=== PATIENT | male | born 1975 | race African-American/Black ===

== ENCOUNTER 2016-09-13 10:24 | Inpatient (IN) | payer OTHER ==
[2016-09-13] MEDS ORDERED: TOPROL XL100 M1 PO (10:40)
[2016-09-13] MEDS ORDERED: LEXAPRO20 M2 PO (10:40)
[2016-09-13 11:34] LABS: BASO % 0.3 % (0-2); EOS % 0.5 % (0-7); EOSINOPHIL ABSOLUTE COUNT 0.1 tho/cmm (0.0-0.7); HCT-HEMATOCRIT 37.2 % (36.0-53.5); IMMATURE GRANULOCYTES ABSOLUTE 0.06 tho/cmm (0-0.03); IMMATURE GRANULOCYTES PERCENT 0.6 % (0-0.3); LYMPH % 9.6 % (20-45); MCV (MEAN CELL VOLUME) 90.7 fl (82.0-96.0); MEAN PLATELET VOLUME 11.5 cmc (9.4-12.4); MONO % 6.6 % (0-12); MONOCYTE ABSOLUTE COUNT 0.7 tho/cmm (0.0-1.2); NEUTROPHIL ABSOLUTE COUNT 8.1 tho/cmm (1.6-8.0); NEUTROPHIL-AUTOMATED 8.1 tho/cmm (1.6-8.0); NEUTROPHILS % 82.4 % (40-80); PLATELET COUNT 119 tho/cmm (150-450); RED CELL DISTRIBUTION WIDTH 17.4 % (12.4-16.4); WHITE BLOOD COUNT 9.9 tho/cmm (4.0-10.0)
[2016-09-13 11:54] LABS: INR 2.6 INR (0.9-1.1); PROTHROMBIN TIME 31.6 SECONDS (9.0-13.6)
[2016-09-13 11:55] LABS: ALB/GLOB RATIO 0.4 (0.8-2.0); ALBUMIN 2.2 g/dl (3.5-5.0); ALCOHOL (ETOH) <10 mg/dl (<10); ALKALINE PHOSPHATASE 192 U/L (33-138); ALT/SGPT 41 U/L (12-78); AST/SGOT 107 U/L (10-40); BLOOD UREA NITROGEN 8 mg/dl (6-24); CALCIUM 8.1 mg/dl (8.5-10.5); CARBON DIOXIDE-VENOUS 29 mmol/L (22-32); CHLORIDE 89 mmol/l (96-110); GLUCOSE 101 mg/dL (70-110); LIPASE 580 U/L (73-393); MAGNESIUM 1.6 mg/dl (1.8-2.6); SODIUM 131 mmol/L (135-145)
[2016-09-13 11:56] LABS: ANION GAP 16 mmol/L (0-20); eGFR VALUE FOR BLACK >90 mL/Min
[2016-09-13 11:57] LABS: POTASSIUM 2.5 mmol/L (3.7-5.1)
[2016-09-13 12:05] LABS: URINE BILIRUBIN MODERATE (NEG); URINE BLOOD MODERATE (NEG); URINE GLUCOSE (UA) NEGATIVE (NEG); URINE KETONE SMALL (NEG); URINE LEUKOCYTE ESTERASE POSITIVE (NEG); URINE NITRITE POSITIVE (NEG); URINE PH 6.5 (5.0-8.0); URINE PROTEIN MODERATE (NEG); URINE SPECIFIC GRAVITY 1.015 (1.003-1.030)
[2016-09-13 12:05] LABS: BILIRUBIN,TOTAL 28.6 mg/dl (0.0-1.5)
[2016-09-13 12:06] LABS: URINE COLOR BROWN
[2016-09-13 12:31] LABS: URINE APPEARANCE CLOUDY
[2016-09-13 12:34] LABS: URINE EPITHELIAL CELLS 15-20 /[HPF] (0-10)
[2016-09-13 12:35] LABS: URINE RBC 0-1 /[HPF] (0-5)
[2016-09-14 02:04] LABS: INR 2.7 INR (0.9-1.1); PROTHROMBIN TIME 32.1 SECONDS (9.0-13.6)
[2016-09-14 02:11] LABS: BASO % 0.3 % (0-2); EOS % 1.1 % (0-7); EOSINOPHIL ABSOLUTE COUNT 0.1 tho/cmm (0.0-0.7); HCT-HEMATOCRIT 33.2 % (36.0-53.5); IMMATURE GRANULOCYTES ABSOLUTE 0.05 tho/cmm (0-0.03); IMMATURE GRANULOCYTES PERCENT 0.5 % (0-0.3); LYMPH % 10.7 % (20-45); MCV (MEAN CELL VOLUME) 90.2 fl (82.0-96.0); MEAN PLATELET VOLUME 11.5 cmc (9.4-12.4); MONO % 7.8 % (0-12); MONOCYTE ABSOLUTE COUNT 0.7 tho/cmm (0.0-1.2); NEUTROPHIL ABSOLUTE COUNT 7.4 tho/cmm (1.6-8.0); NEUTROPHIL-AUTOMATED 7.4 tho/cmm (1.6-8.0); NEUTROPHILS % 79.6 % (40-80); PLATELET COUNT 101 tho/cmm (150-450); RED BLOOD COUNT 3.68 mil/cmm (4.40-5.70); RED CELL DISTRIBUTION WIDTH 17.7 % (12.4-16.4); WHITE BLOOD COUNT 9.3 tho/cmm (4.0-10.0)
[2016-09-14 02:18] LABS: ALBUMIN 1.9 g/dl (3.5-5.0); ALKALINE PHOSPHATASE 167 U/L (33-138); ALT/SGPT 36 U/L (12-78); AMYLASE 74 U/L (20-90); AST/SGOT 88 U/L (10-40); BLOOD UREA NITROGEN 13 mg/dl (6-24); CALCIUM 7.7 mg/dl (8.5-10.5); CARBON DIOXIDE-VENOUS 32 mmol/L (22-32); CHLORIDE 92 mmol/l (96-110); GLUCOSE 94 mg/dL (70-110); MAGNESIUM 2.4 mg/dl (1.8-2.6); PHOSPHOROUS 1.9 mg/dl (2.5-4.9); SODIUM 134 mmol/L (135-145)
[2016-09-14 02:29] LABS: IRON 78 ug/dl (49-181); IRON BINDING CAPACITY 88 ug/dl (250-450)
[2016-09-14 02:45] LABS: ALB/GLOB RATIO 0.4 (0.8-2.0); ANION GAP 13 mmol/L (0-20); BILIRUBIN,TOTAL 25.9 mg/dl (0.0-1.5); CREATININE 1.25 mg/dl (0.60-1.30); POTASSIUM 2.8 mmol/L (3.7-5.1); eGFR VALUE FOR BLACK 82 mL/Min
[2016-09-14 02:46] LABS: BILIRUBIN,DIRECT >17.0 mg/dl (0.0-0.3); BILIRUBIN,INDIRECT 8.9 mg/dL (0.0-1.0); FERRITIN 540 ng/ml (22-388); LIPASE 1245 U/L (73-393)
[2016-09-14 19:48] LABS: PLATELET COUNT 143 tho/cmm (150-450)
[2016-09-15 06:02] LABS: BASO % 0.1 % (0-2); EOS % 0.1 % (0-7); HCT-HEMATOCRIT 35.1 % (36.0-53.5); IMMATURE GRANULOCYTES ABSOLUTE 0.18 tho/cmm (0-0.03); IMMATURE GRANULOCYTES PERCENT 1.2 % (0-0.3); LYMPH % 9.5 % (20-45); LYMPH ABSOLUTE COUNT 1.4 tho/cmm (0.8-4.5); MCV (MEAN CELL VOLUME) 90.7 fl (82.0-96.0); MEAN PLATELET VOLUME 11.1 cmc (9.4-12.4); MONO % 3.8 % (0-12); MONOCYTE ABSOLUTE COUNT 0.6 tho/cmm (0.0-1.2); NEUTROPHIL ABSOLUTE COUNT 12.6 tho/cmm (1.6-8.0); NEUTROPHIL-AUTOMATED 12.6 tho/cmm (1.6-8.0); NEUTROPHILS % 85.3 % (40-80); PLATELET COUNT 154 tho/cmm (150-450); RED BLOOD COUNT 3.87 mil/cmm (4.40-5.70); RED CELL DISTRIBUTION WIDTH 18.1 % (12.4-16.4)
[2016-09-15 06:06] LABS: INR 2.6 INR (0.9-1.1); PROTHROMBIN TIME 30.8 SECONDS (9.0-13.6)
[2016-09-15 06:16] LABS: WHITE BLOOD COUNT 14.7 tho/cmm (4.0-10.0)
[2016-09-15 06:17] LABS: HGB-HEMOGLOBIN 11.8 gm/dl (13.5-17.0); MCH (MEAN CORPUSCULAR HGB) 30.4 pg (28.0-32.0); MCHC MEAN CORPUSCULAR HGB CONC 33.6 % (32.0-36.0)
[2016-09-15 06:20] LABS: ALBUMIN 1.8 g/dl (3.5-5.0); ALKALINE PHOSPHATASE 170 U/L (33-138); ALT/SGPT 38 U/L (12-78); ANION GAP 13 mmol/L (0-20); AST/SGOT 95 U/L (10-40); CALCIUM 7.6 mg/dl (8.5-10.5); CARBON DIOXIDE-VENOUS 23 mmol/L (22-32); CHLORIDE 97 mmol/l (96-110); GLUCOSE 128 mg/dL (70-110); POTASSIUM 3.9 mmol/L (3.7-5.1); SODIUM 129 mmol/L (135-145)
[2016-09-15 06:36] LABS: ALB/GLOB RATIO 0.4 (0.8-2.0); BLOOD UREA NITROGEN 25 mg/dl (6-24); eGFR VALUE FOR BLACK 44 mL/Min
[2016-09-15 06:37] LABS: BILIRUBIN,TOTAL 27.3 mg/dl (0.0-1.5)
[2016-09-15 06:38] LABS: CREATININE 2.08 mg/dl (0.60-1.30)
[2016-09-15 09:47] LABS: HGB-HEMOGLOBIN 11.8 gm/dl (13.5-17.0)
[2016-09-15 09:49] LABS: HGB-HEMOGLOBIN 11.2 gm/dl (13.5-17.0); MCH (MEAN CORPUSCULAR HGB) 30.4 pg (28.0-32.0)
[2016-09-15 09:49] LABS: HGB-HEMOGLOBIN 12.5 gm/dl (13.5-17.0); MCH (MEAN CORPUSCULAR HGB) 30.4 pg (28.0-32.0); MCHC MEAN CORPUSCULAR HGB CONC 33.6 % (32.0-36.0)
[2016-09-15 09:50] LABS: MCHC MEAN CORPUSCULAR HGB CONC 33.7 % (32.0-36.0)
[2016-09-15 14:28] LABS: ANION GAP 13 mmol/L (0-20); BLOOD UREA NITROGEN 24 mg/dl (6-24); CALCIUM 7.5 mg/dl (8.5-10.5); CARBON DIOXIDE-VENOUS 24 mmol/L (22-32); CHLORIDE 96 mmol/l (96-110); POTASSIUM 3.7 mmol/L (3.7-5.1); SODIUM 129 mmol/L (135-145); eGFR VALUE FOR BLACK 41 mL/Min
[2016-09-15 14:40] LABS: CREATININE 2.23 mg/dl (0.60-1.30); GLUCOSE 63 mg/dL (70-110)
[2016-09-16 02:20] LABS: BASO % 0.1 % (0-2); HCT-HEMATOCRIT 32.1 % (36.0-53.5); HGB-HEMOGLOBIN 11.7 gm/dl (13.5-17.0); IMMATURE GRANULOCYTES ABSOLUTE 0.09 tho/cmm (0-0.03); IMMATURE GRANULOCYTES PERCENT 0.8 % (0-0.3); LYMPH % 11.2 % (20-45); LYMPH ABSOLUTE COUNT 1.3 tho/cmm (0.8-4.5); MCV (MEAN CELL VOLUME) 90.7 fl (82.0-96.0); MEAN PLATELET VOLUME 11.1 cmc (9.4-12.4); MONO % 9.4 % (0-12); MONOCYTE ABSOLUTE COUNT 1.1 tho/cmm (0.0-1.2); NEUTROPHILS % 78.5 % (40-80); PLATELET COUNT 136 tho/cmm (150-450); RED BLOOD COUNT 3.54 mil/cmm (4.40-5.70); WHITE BLOOD COUNT 11.5 tho/cmm (4.0-10.0)
[2016-09-16 02:28] LABS: MCH (MEAN CORPUSCULAR HGB) 33.1 pg (28.0-32.0); MCHC MEAN CORPUSCULAR HGB CONC 36.4 % (32.0-36.0)
[2016-09-16 02:30] LABS: INR 2.3 INR (0.9-1.1); PROTHROMBIN TIME 27.4 SECONDS (9.0-13.6)
[2016-09-16 02:44] LABS: ALBUMIN 1.7 g/dl (3.5-5.0); ALKALINE PHOSPHATASE 161 U/L (33-138); ALT/SGPT 41 U/L (12-78); ANION GAP 14 mmol/L (0-20); AST/SGOT 91 U/L (10-40); BLOOD UREA NITROGEN 32 mg/dl (6-24); CALCIUM 7.4 mg/dl (8.5-10.5); CARBON DIOXIDE-VENOUS 24 mmol/L (22-32); CHLORIDE 98 mmol/l (96-110); POTASSIUM 3.6 mmol/L (3.7-5.1); SODIUM 132 mmol/L (135-145)
[2016-09-16 02:59] LABS: ALB/GLOB RATIO 0.4 (0.8-2.0); CREATININE 2.38 mg/dl (0.60-1.30); GLUCOSE 116 mg/dL (70-110); eGFR VALUE FOR BLACK 38 mL/Min
[2016-09-16 03:00] LABS: BILIRUBIN,TOTAL 23.8 mg/dl (0.0-1.5)
[2016-09-17 04:41] LABS: BASO % 0.1 % (0-2); EOS % 0.1 % (0-7); HCT-HEMATOCRIT 31.2 % (36.0-53.5); HGB-HEMOGLOBIN 11.4 gm/dl (13.5-17.0); IMMATURE GRANULOCYTES ABSOLUTE 0.12 tho/cmm (0-0.03); IMMATURE GRANULOCYTES PERCENT 1.2 % (0-0.3); LYMPH % 8.2 % (20-45); LYMPH ABSOLUTE COUNT 0.8 tho/cmm (0.8-4.5); MCH (MEAN CORPUSCULAR HGB) 33.3 pg (28.0-32.0); MCHC MEAN CORPUSCULAR HGB CONC 36.5 % (32.0-36.0); MCV (MEAN CELL VOLUME) 91.2 fl (82.0-96.0); MEAN PLATELET VOLUME 10.4 cmc (9.4-12.4); MONO % 7.4 % (0-12); MONOCYTE ABSOLUTE COUNT 0.7 tho/cmm (0.0-1.2); NEUTROPHIL ABSOLUTE COUNT 8.1 tho/cmm (1.6-8.0); NEUTROPHIL-AUTOMATED 8.1 tho/cmm (1.6-8.0); PLATELET COUNT 133 tho/cmm (150-450); RED BLOOD COUNT 3.42 mil/cmm (4.40-5.70); RED CELL DISTRIBUTION WIDTH 18.5 % (12.4-16.4); WHITE BLOOD COUNT 9.7 tho/cmm (4.0-10.0)
[2016-09-17 05:03] LABS: ALB/GLOB RATIO 0.7 (0.8-2.0); ALBUMIN 2.5 g/dl (3.5-5.0); ALKALINE PHOSPHATASE 162 U/L (33-138); ALT/SGPT 44 U/L (12-78); ANION GAP 15 mmol/L (0-20); AST/SGOT 88 U/L (10-40); BLOOD UREA NITROGEN 32 mg/dl (6-24); CALCIUM 8.2 mg/dl (8.5-10.5); CARBON DIOXIDE-VENOUS 22 mmol/L (22-32); CHLORIDE 104 mmol/l (96-110); GLUCOSE 89 mg/dL (70-110); POTASSIUM 3.7 mmol/L (3.7-5.1); SODIUM 137 mmol/L (135-145)
[2016-09-17 05:04] LABS: INR 2.2 INR (0.9-1.1); PROTHROMBIN TIME 26.4 SECONDS (9.0-13.6)
[2016-09-17 05:06] LABS: CREATININE 2.24 mg/dl (0.60-1.30); eGFR VALUE FOR BLACK 41 mL/Min
[2016-09-17 05:12] LABS: BILIRUBIN,TOTAL 26.3 mg/dl (0.0-1.5)
[2016-09-18 05:54] LABS: EOS % 0.5 % (0-7); HCT-HEMATOCRIT 31.2 % (36.0-53.5); HGB-HEMOGLOBIN 11.3 gm/dl (13.5-17.0); IMMATURE GRANULOCYTES ABSOLUTE 0.06 tho/cmm (0-0.03); IMMATURE GRANULOCYTES PERCENT 0.7 % (0-0.3); LYMPH % 9.5 % (20-45); LYMPH ABSOLUTE COUNT 0.8 tho/cmm (0.8-4.5); MCHC MEAN CORPUSCULAR HGB CONC 36.2 % (32.0-36.0); MCV (MEAN CELL VOLUME) 91.2 fl (82.0-96.0); MEAN PLATELET VOLUME 11.1 cmc (9.4-12.4); MONO % 6.8 % (0-12); MONOCYTE ABSOLUTE COUNT 0.6 tho/cmm (0.0-1.2); NEUTROPHIL ABSOLUTE COUNT 6.9 tho/cmm (1.6-8.0); NEUTROPHIL-AUTOMATED 6.9 tho/cmm (1.6-8.0); NEUTROPHILS % 82.5 % (40-80); PLATELET COUNT 131 tho/cmm (150-450); RED BLOOD COUNT 3.42 mil/cmm (4.40-5.70); RED CELL DISTRIBUTION WIDTH 18.8 % (12.4-16.4); WHITE BLOOD COUNT 8.4 tho/cmm (4.0-10.0)
[2016-09-18 05:57] LABS: INR 2.3 INR (0.9-1.1); PROTHROMBIN TIME 26.9 SECONDS (9.0-13.6)
[2016-09-18 06:11] LABS: ALB/GLOB RATIO 0.9 (0.8-2.0); ALBUMIN 2.8 g/dl (3.5-5.0); ALKALINE PHOSPHATASE 133 U/L (33-138); ALT/SGPT 43 U/L (12-78); ANION GAP 14 mmol/L (0-20); AST/SGOT 76 U/L (10-40); BLOOD UREA NITROGEN 30 mg/dl (6-24); CALCIUM 8.6 mg/dl (8.5-10.5); CARBON DIOXIDE-VENOUS 25 mmol/L (22-32); CHLORIDE 103 mmol/l (96-110); GLUCOSE 81 mg/dL (70-110); POTASSIUM 3.6 mmol/L (3.7-5.1); SODIUM 138 mmol/L (135-145)
[2016-09-18 06:12] LABS: CREATININE 1.93 mg/dl (0.60-1.30); eGFR VALUE FOR BLACK 49 mL/Min
[2016-09-18 06:32] LABS: BILIRUBIN,TOTAL 25.8 mg/dl (0.0-1.5)
[2016-09-19 05:38] LABS: EOS % 0.5 % (0-7); HCT-HEMATOCRIT 28.8 % (36.0-53.5); HGB-HEMOGLOBIN 10.4 gm/dl (13.5-17.0); IMMATURE GRANULOCYTES ABSOLUTE 0.05 tho/cmm (0-0.03); IMMATURE GRANULOCYTES PERCENT 0.6 % (0-0.3); LYMPH % 8.8 % (20-45); LYMPH ABSOLUTE COUNT 0.7 tho/cmm (0.8-4.5); MCH (MEAN CORPUSCULAR HGB) 32.8 pg (28.0-32.0); MCHC MEAN CORPUSCULAR HGB CONC 36.1 % (32.0-36.0); MCV (MEAN CELL VOLUME) 90.9 fl (82.0-96.0); MEAN PLATELET VOLUME 10.6 cmc (9.4-12.4); MONO % 6.2 % (0-12); MONOCYTE ABSOLUTE COUNT 0.5 tho/cmm (0.0-1.2); NEUTROPHIL ABSOLUTE COUNT 6.9 tho/cmm (1.6-8.0); NEUTROPHIL-AUTOMATED 6.9 tho/cmm (1.6-8.0); NEUTROPHILS % 83.9 % (40-80); PLATELET COUNT 134 tho/cmm (150-450); RED BLOOD COUNT 3.17 mil/cmm (4.40-5.70); RED CELL DISTRIBUTION WIDTH 18.8 % (12.4-16.4); WHITE BLOOD COUNT 8.2 tho/cmm (4.0-10.0)
[2016-09-19 05:43] LABS: INR 2.4 INR (0.9-1.1); PROTHROMBIN TIME 28.2 SECONDS (9.0-13.6)
[2016-09-19 05:57] LABS: ALB/GLOB RATIO 1.1 (0.8-2.0); ALBUMIN 3.1 g/dl (3.5-5.0); ALKALINE PHOSPHATASE 118 U/L (33-138); ALT/SGPT 41 U/L (12-78); ANION GAP 12 mmol/L (0-20); AST/SGOT 68 U/L (10-40); BLOOD UREA NITROGEN 28 mg/dl (6-24); CALCIUM 8.5 mg/dl (8.5-10.5); CARBON DIOXIDE-VENOUS 24 mmol/L (22-32); CHLORIDE 104 mmol/l (96-110); GLUCOSE 94 mg/dL (70-110); POTASSIUM 3.6 mmol/L (3.7-5.1); SODIUM 136 mmol/L (135-145)
[2016-09-19 05:59] LABS: eGFR VALUE FOR BLACK 53 mL/Min
[2016-09-19 06:10] LABS: BILIRUBIN,TOTAL 26.7 mg/dl (0.0-1.5)
[2016-09-20 05:45] LABS: INR 2.5 INR (0.9-1.1); PROTHROMBIN TIME 29.7 SECONDS (9.0-13.6)
[2016-09-20 06:04] LABS: ALBUMIN 2.9 g/dl (3.5-5.0); ALKALINE PHOSPHATASE 133 U/L (33-138); ALT/SGPT 50 U/L (12-78); ANION GAP 12 mmol/L (0-20); AST/SGOT 73 U/L (10-40); BLOOD UREA NITROGEN 26 mg/dl (6-24); CALCIUM 8.4 mg/dl (8.5-10.5); CARBON DIOXIDE-VENOUS 25 mmol/L (22-32); CHLORIDE 103 mmol/l (96-110); GLUCOSE 101 mg/dL (70-110); POTASSIUM 3.5 mmol/L (3.7-5.1); SODIUM 136 mmol/L (135-145)
[2016-09-20 06:06] LABS: CREATININE 1.68 mg/dl (0.60-1.30); eGFR VALUE FOR BLACK 58 mL/Min
[2016-09-20 06:14] LABS: BILIRUBIN,TOTAL 27.6 mg/dl (0.0-1.5)
[2016-09-20 07:38] LABS: HCT-HEMATOCRIT 30.6 % (36.0-53.5); HGB-HEMOGLOBIN 11.1 gm/dl (13.5-17.0); MCV (MEAN CELL VOLUME) 91.3 fl (82.0-96.0); RED CELL DISTRIBUTION WIDTH 18.7 % (12.4-16.4)
--- NOTE | 2016-09-20 20:22 | NUR ---
VN ROUNDING-DEFERRED PATIENT IS SLEEPING-REVIEWED EMR
[2016-09-21 04:54] LABS: INR 2.4 INR (0.9-1.1)
[2016-09-21 05:04] LABS: BASO % 0.1 % (0-2); EOS % 0.9 % (0-7); EOSINOPHIL ABSOLUTE COUNT 0.1 tho/cmm (0.0-0.7); HCT-HEMATOCRIT 30.4 % (36.0-53.5); HGB-HEMOGLOBIN 11.2 gm/dl (13.5-17.0); IMMATURE GRANULOCYTES ABSOLUTE 0.06 tho/cmm (0-0.03); IMMATURE GRANULOCYTES PERCENT 0.5 % (0-0.3); LYMPH % 10.3 % (20-45); LYMPH ABSOLUTE COUNT 1.3 tho/cmm (0.8-4.5); MCH (MEAN CORPUSCULAR HGB) 33.4 pg (28.0-32.0); MCV (MEAN CELL VOLUME) 90.7 fl (82.0-96.0); MEAN PLATELET VOLUME 11.1 cmc (9.4-12.4); MONO % 5.2 % (0-12); MONOCYTE ABSOLUTE COUNT 0.6 tho/cmm (0.0-1.2); NEUTROPHIL ABSOLUTE COUNT 10.2 tho/cmm (1.6-8.0); NEUTROPHIL-AUTOMATED 10.2 tho/cmm (1.6-8.0); PLATELET COUNT 164 tho/cmm (150-450); RED BLOOD COUNT 3.35 mil/cmm (4.40-5.70); RED CELL DISTRIBUTION WIDTH 18.7 % (12.4-16.4); WHITE BLOOD COUNT 12.2 tho/cmm (4.0-10.0)
[2016-09-21 05:10] LABS: ALBUMIN 2.9 g/dl (3.5-5.0); ALKALINE PHOSPHATASE 151 U/L (33-138); ALT/SGPT 59 U/L (12-78); ANION GAP 12 mmol/L (0-20); AST/SGOT 83 U/L (10-40); BLOOD UREA NITROGEN 25 mg/dl (6-24); CALCIUM 8.6 mg/dl (8.5-10.5); CARBON DIOXIDE-VENOUS 24 mmol/L (22-32); CHLORIDE 103 mmol/l (96-110); GLUCOSE 85 mg/dL (70-110); SODIUM 135 mmol/L (135-145)
[2016-09-21 05:19] LABS: MCHC MEAN CORPUSCULAR HGB CONC 36.8 % (32.0-36.0)
[2016-09-21 05:34] LABS: ALB/GLOB RATIO 0.9 (0.8-2.0); eGFR VALUE FOR BLACK 62 mL/Min
[2016-09-21 05:35] LABS: BILIRUBIN,TOTAL 30.5 mg/dl (0.0-1.5); CREATININE 1.58 mg/dl (0.60-1.30)
--- NOTE | 2016-09-21 15:30 | NUR ---
VIRTUAL CARE NOTE: PT RESTING ON BED, NOTED MILD TREMOR ON EXTREMETIES. PT STATES DOING BETTER TODAY. WALKS WITH PHYSICAL THERAPY. DISCHARGE PLAN REVIEWED WITH PT, PT SAID HE WOULD LIKE TO EITHER GO HOME AND DO OUT PATIENT REHAB OR GO TO FACILITY IS OK ALSO. PT LIVES AT HOME WITH HIS AND KIDS. PT DENIES ANY NEEDS AT THIS TIME.
[2016-09-22] MEDS ORDERED: XIFAXAN550 M1 PO (15:18)
[2016-09-22] MEDS ORDERED: CHLORDIAZEPOXID10 M1 PO (15:21)
[2016-09-22] MEDS ORDERED: PREDNISONE5 M1 PO (15:22)
[2016-11-03] MEDS ORDERED: LASIX40 M1 PO (11:35)
[2016-11-03] MEDS ORDERED: NICOTINE PATCH1 EAC2 TP (11:35)
[2016-11-03] MEDS ORDERED: ALDACTONE100 M1 PO (11:36)
[2016-11-03] MEDS ORDERED: IMODIUM A-D2 M3 PO (11:37)
[2016-11-03] MEDS ORDERED: ORAPRED ODT10 MG PO (11:39)
[2016-11-07] MEDS ORDERED: POTASSIUM CHLO20 ME3 PO (01:03)
[2016-11-07] MEDS ORDERED: PROTONIX40 M2 (01:03)
[2016-11-07] MEDS ORDERED: PROMETHAZINE HC25 M3 PO (02:37)
== END 2016-09-22 17:15 | disposition home health service (06) | DRG 433 ==
LOC: EDMED 10:24 → EMR2 15:32 → PCUA 19:08 → 5WD 09-20 18:19
PROVIDERS: Emergency Medicine; Physician Assistant Medical; Specialist; ADMIT Family Medicine
PROC: 0DJ08ZZ Inspection of Upper Intestinal Tract, Via Natural or Artificial Opening Endoscopic (ICD-10-PCS; 2016-09-13)
PROC: 05HF33Z Insertion of Infusion Device into Left Cephalic Vein, Percutaneous Approach (ICD-10-PCS; principal; 2016-09-15)
DX: K70.10 Alcoholic hepatitis without ascites (principal); N17.9 Acute kidney failure, unspecified; D64.9 Anemia, unspecified; E87.1 Hypo-osmolality and hyponatremia
CPT/HCPCS: C1751; G0480; J2060; J2405; J3411; J3475; J3480; J7030; J7050; J7512; P9047